=== PATIENT | female | born 1960 | race Caucasian/White ===

== ENCOUNTER 2017-01-24 07:39 | Day surgery (SDC) | payer OTHER ==
[~2017-01-24] VITALS: Ht 160 cm; Wt 52.2 kg
[~2017-01-24 07:39] MED LIST: LORCET 5-325 M1 EACH PO; NORVASC5 MG PO; ZESTRIL20 MG PO
[2017-01-24 08:49] VITALS: BP 161/94
[2017-01-24 15:21] VITALS: BP 156/85
[2017-01-24 19:39] VITALS: BP 132/85
[2017-01-25 00:04] VITALS: BP 100/61
[2017-01-25 08:11] VITALS: BP 106/65
[2017-01-25] MEDS ORDERED: DIAZEPAM10 MG PO (10:48)
[2017-01-25] MEDS ORDERED: HYDROCODON-ACE1 EAC7 PO (10:48)
== END 2017-01-25 11:51 | disposition home or self-care (01) ==
LOC: SDC 07:39 → 2SOUTH 13:47 → ENRESERV 13:49 → 3EAST 15:05 → SDC 15:08 → 3EAST 01-25 11:51
DX: M47.12 Other spondylosis with myelopathy, cervical region (principal); M48.02 Spinal stenosis, cervical region; F41.8 Other specified anxiety disorders; G47.30 Sleep apnea, unspecified; Z87.891 Personal history of nicotine dependence; I10 Essential (primary) hypertension
CPT/HCPCS: 72040; 72125; 76000; 86850; 86900; 86901; 94799; 95938; C1713; C1821; G0378; G0480; J0690; J1100; J1170; J2250; J2405; J3010; J3480